=== PATIENT | female | born 1980 | race American Indian/Alaskan Native ===

== ENCOUNTER 2019-10-19 04:59 | Day surgery (SDC) | payer OTHER ==
[2019-10-19] MEDS ORDERED: Midazolam 1 MG/ML 2 ML SDV IV ONE ×3 (05:00→06:32)
[2019-10-19] MEDS ORDERED: fentaNYL 100 MCG/2 ML SDV IV ONE ×3 (05:00→06:31)
[2019-10-19] MEDS ORDERED: Dextrose 5%-0.45% NaCl 1,000 ML IV SCH (06:00)
[2019-10-19] MEDS ORDERED: Midazolam 1 MG/ML 2 ML SDV ONE (06:21)
[2019-10-19] MEDS ORDERED: fentaNYL 100 MCG/2 ML SDV ONE (06:21)
--- NOTE | 2019-10-19 08:22 | OR ---
DATE: 10/19/2019 PROCEDURE: Esophagogastroduodenoscopy and multiple pinch biopsies. INSTRUMENT USED: [id number]-HQ190 Olympus video panendoscope. PREMEDICATIONS: No oral or topical anesthesia used. Fentanyl 100 mcg intravenous, Versed 2 mg intravenous. The procedure was done under pulse oximetry, BP recording, and ekg monitor tech. INDICATION: The patient with longstanding heartburn as well as dyspepsia and abdominal bloating unexplained and not responsive to medical measures, on long- term acid suppressants. Esophagogastroduodenoscopy is performed for detection of any active erosive lesions, [place] esophagus and/or malignancy also under consideration, H pylori status to be determined, small bowel biopsies to be obtained for any evidence of celiac disease, endoscopic hemostasis therapy if needed. DESCRIPTION OF PROCEDURE: The scope was passed with ease. Adequate visualization of the esophagus was made from proximal to distal areas. No upper esophageal lesions identified. No distal esophageal stricture. No uphill or downhill esophageal varices. No Arin-Gregg tear. No evidence of erosive esophagitis by [place] criteria. No esophageal polyp or tumor mass identified. Z-line was seen at around 39 cm distal to the oral verge, configuration consistent with grade 1 by ZAP classification. No esophageal polyp or tumor mass identified. No proximal gastric varices noted. Gastric fundus examination by retroflexion showed no polypoid lesions. No gastric ulcer, malignant mass, or vascular ectasia identified. Duodenal bulb showed no ulcer. Visualized second part of the duodenum was unremarkable. Multiple pinch biopsies, 4 in number were taken from different areas of the second part of the duodenum and tissues were also obtained from the duodenal bulb at 9 and 12 o'clock positions and sent for any histopathologic evidence of celiac disease. Multiple pinch biopsies were also taken from the gastric antrum and proximal body and sent for PyloriTek test for H pylori and histopathology. No bleeding was noted from any of the visualized areas at the completion of examination. Photographs were taken of the duodenal bulb, gastric antrum, fundus, and distal esophagus. IMPRESSION: Normal study. The patient tolerated the procedure well. [facility] /[id number]
--- NOTE | 2019-10-19 09:56 | LETTER ---
10/19/2019 Ally BNUNY Chen [facility] [address] [place] [address] RE: BRYANTSANTHOSH MARIANNTHANH : 1980 Dear Mr. Chen: Ms. Santhosh Kyle had esophagogastroduodenoscopy done this morning and she tolerated the procedure well. I herewith send a copy of the endoscopy note and photographs for your review. Thank you. Sincerely, [facility] /[id number]
== END 2019-10-19 08:49 | disposition home or self-care (01) ==
LOC: DL.ENDO 04:59
PROVIDERS: ATTEND Internal Medicine Gastroenterology
DX: K29.50 Unspecified chronic gastritis without bleeding (principal); B96.81 Helicobacter pylori [H. pylori] as the cause of diseases classified elsewhere; E66.09 Other obesity due to excess calories; E55.9 Vitamin D deficiency, unspecified; E53.8 Deficiency of other specified B group vitamins; F17.210 Nicotine dependence, cigarettes, uncomplicated; K21.9 Gastro-esophageal reflux disease without esophagitis; Z86.010 Personal history of colon polyps; Z68.34 Body mass index [BMI] 34.0-34.9, adult
CPT/HCPCS: 43239; 81025; 87077; J2250; J3010; J7042

== ENCOUNTER 2019-10-20 06:21 | Day surgery (SDC) | payer OTHER ==
[2019-10-20] MEDS ORDERED: fentaNYL 100 MCG/2 ML SDV IV ONE ×5 (06:22→07:37)
[2019-10-20] MEDS ORDERED: Midazolam 1 MG/ML 2 ML SDV IV ONE ×7 (06:22→07:34)
[2019-10-20] MEDS ORDERED: Midazolam 1 MG/ML 2 ML SDV ONE (06:41)
[2019-10-20] MEDS ORDERED: fentaNYL 100 MCG/2 ML SDV ONE (06:41)
[2019-10-20] MEDS ORDERED: Dextrose 5%-0.45% NaCl 1,000 ML IV SCH (06:45)
--- NOTE | 2019-10-20 08:41 | OR ---
DATE: 10/20/2019 PROCEDURE: Total colonoscopy, terminal ileoscopy, and multiple pinch biopsies. INSTRUMENT USED: [id number]-H190DL Olympus video colonoscope. PREMEDICATIONS: Fentanyl 150 mcg intravenous, Versed 4 mg intravenous. The procedure was done under pulse oximetry, BP recording, and monitor worker. INDICATION: The patient with chronic diarrhea and rectal bleeding unexplained and not responsive to medical measures. Colonoscopic examination is done for detection of any polypoid lesions and removal, endoscopic hemostasis therapy if needed, biopsies to be obtained for any evidence of microscopic colitis. PROCEDURE IN DETAIL: Initial rectal exam was unremarkable. Rigid anoscopy showed small internal hemorrhoids without bleeding from them. The colonoscope was passed with ease. Diverticula were noted in the distal left colon along with some deformity. The scope was passed with ease up to and beyond the ileocecal junction to visualize the normal-appearing terminal ileum. Photographs were taken of terminal ileum and the cecum, multiple pinch biopsies were obtained from the terminal ileum and sent for histopathology. No bleeding was noted from any of the visualized areas at the commencement of the examination. No stricture. No vascular ectasia. No large isolated ulcerations seen. No evidence of diffuse inflammatory bowel disease in the form of friability, contact bleeding, or ulcerations. The bowel preparation was found to be adequate, [place] scale 2 in all the regions, total score 6. Probing the proximal sides of folds and flexures using adequate distention and clearing up the stool material, withdrawal of the scope was made. Multiple pinch biopsies were taken from the normal-appearing mucosa of the mid transverse colon, mid descending colon, and rectosigmoid, and sent for any histopathologic evidence of microscopic colitis. No bleeding was noted in any of the visualized areas at the completion of examination. IMPRESSION: 1. Internal hemorrhoids. 2. Diverticulosis. The patient tolerated the procedure well. [facility] /[id number]
--- NOTE | 2019-10-20 09:08 | LETTER ---
10/20/2019 Ally BUNNY Chen [facility] [address] [place] [address] RE: BRYANTSANTHOSH MARIANNTHANH : 1980 Dear Mr. Chen: Ms. Santhosh Kyle had colonoscopic examination done this morning and she tolerated the procedure well. I herewith send a copy of the endoscopy note and photographs for your review. Thank you. Sincerely, [facility] /[id number]
== END 2019-10-20 10:00 | disposition home or self-care (01) ==
LOC: DL.ENDO 06:21
PROVIDERS: ATTEND Internal Medicine Gastroenterology
DX: K52.9 Noninfective gastroenteritis and colitis, unspecified (principal); K57.31 Diverticulosis of large intestine without perforation or abscess with bleeding; K64.8 Other hemorrhoids; E66.09 Other obesity due to excess calories; E53.8 Deficiency of other specified B group vitamins; E55.9 Vitamin D deficiency, unspecified; Z88.5 Allergy status to narcotic agent; Z86.010 Personal history of colon polyps; Z98.890 Other specified postprocedural states; Z79.899 Other long term (current) drug therapy
CPT/HCPCS: 45380; J2250; J3010; J7042; G0121

== ENCOUNTER 2021-06-30 13:51 | Observation (INO) | payer OTHER ==
[2021-06-30] MEDS ORDERED: Sodium Chloride 0.9% 10 ML Syringe FLUSH PRN (14:03)
[2021-06-30] MEDS ORDERED: MVI, Adult with Vitamin K 10 ML, Thiamine 100 MG, Folic Acid 1 MG in Lactated Ringers 1... IV ONE ×4 (14:06)
[2021-06-30 15:12] LABS: ANION GAP 13.5 mEq/L (7-13); CHLORIDE,CL 105 mmol/L (98-107); SODIUM,NA 140 mmol/L (136-145)
[2021-06-30 15:41] LABS: ACETAMINOPHEN 0 ug/mL (10-30 (Therapeutic))
[2021-06-30 15:54] LABS: PTT,PARTIAL THROMBOPLSTIN TIME 20.8 SEC (22.0-34.0)
[2021-06-30 17:08] LABS: AMPHETAMINES,URINE NEGATIVE (NEGATIVE); BARBITURATES,URINE NEGATIVE (NEGATIVE); BENZODIAZEPINE,URINE NEGATIVE (NEGATIVE); MDMA (ECSTASY), URINE NEGATIVE (NEGATIVE); METHADONE,URINE NEGATIVE (NEGATIVE); METHAMPHETAMINES,URINE NEGATIVE (NEGATIVE); OPIATES,URINE NEGATIVE (NEGATIVE); OXYCODONE,URINE NEGATIVE (NEGATIVE); PHENCYCLIDINE,URINE NEGATIVE (NEGATIVE); TCA,URINE NEGATIVE (NEGATIVE)
[2021-06-30] MEDS ORDERED: Lidocaine 5% Oint 35.44 GM Tube TOP PRN (18:34)
[2021-06-30] MEDS: NS + KCl 20mEq/L 1,000 ML IV SCH (19:44)
[2021-06-30] MEDS: Ondansetron 4 MG/2 ML SDV IVPUSH PRN (19:57)
[2021-06-30] MEDS ORDERED: Flumazenil 0.1 MG/ML 5 ML MDV IVPUSH PRN (22:03)
[2021-06-30] MEDS: LORazepam 2 MG/ML SDV IVPUSH PRN (22:26)
[2021-06-30] MEDS: Famotidine 20 MG Tab PO SCH (22:26)
[2021-07-01] MEDS: LORazepam 2 MG/ML SDV IVPUSH PRN ×6 (01:57→16:48)
[2021-07-01 04:37] LABS: CORONAVIRUS COVID-19 NAA NEGATIVE (NEGATIVE); RESPIRATORY SYNCYTIAL VIR NAA NEGATIVE (NEGATIVE)
[2021-07-01] MEDS: Thiamine 100 MG in Sodium Chloride 0.9% 50 ML IV SCH ×2 (07:58→10:02)
[2021-07-01 08:26] LABS: ANION GAP 12.7 mEq/L (7-13); CHLORIDE,CL 106 mmol/L (98-107); SODIUM,NA 141 mmol/L (136-145)
[2021-07-01] MEDS ORDERED: Acetaminophen 325 MG Tab PO PRN (09:09)
[2021-07-01] MEDS: NS + KCl 20mEq/L 1,000 ML IV SCH (09:32)
[2021-07-01] MEDS: Famotidine 20 MG Tab PO SCH (09:52)
[2021-07-01] MEDS: Ondansetron 4 MG/2 ML SDV IVPUSH PRN (12:22)
== END 2021-07-01 18:00 | disposition left against medical advice (07) ==
LOC: DL.ED 13:51 → DL.MS 18:08 → DL.ED 18:21
PROVIDERS: ADMIT Internal Medicine; ATTEND Internal Medicine
DX: T42.6X2A Poisoning by other antiepileptic and sedative-hypnotic drugs, intentional self-harm, initial encounter (principal); F10.129 Alcohol abuse with intoxication, unspecified; G25.81 Restless legs syndrome; J45.909 Unspecified asthma, uncomplicated; K21.9 Gastro-esophageal reflux disease without esophagitis; F41.9 Anxiety disorder, unspecified; G89.29 Other chronic pain; M54.9 Dorsalgia, unspecified; Y90.0 Blood alcohol level of less than 20 mg/100 ml; Z88.8 Allergy status to other drugs, medicaments and biological substances; Z91.030 Bee allergy status; Z79.899 Other long term (current) drug therapy; Z20.822 Contact with and (suspected) exposure to COVID-19
CPT/HCPCS: 0241U; 36415; 80053; 80143; 80179; 80305; 80307; 81001; 81025; 83735; 84443; 85025; 85610; 85730; 93005; 96365; 96367; 96375; 96376; 99285; A9270; G0378; J2060; J2405; J3411; J3480; J7120; J3490

== ENCOUNTER 2021-07-10 07:33 | Inpatient (IN) | payer MEDICAID, OTHER ==
[2021-07-10] MEDS ORDERED: Prochlorperazine 5 MG Tab PO ONE (08:29)
[2021-07-10] MEDS ORDERED: MVI, Adult with Vitamin K 10 ML, Folic Acid 1 MG, Thiamine 100 MG in Lactated Ringers 1... IV ONE ×4 (08:29)
[2021-07-10 08:55] LABS: ANION GAP 17.4 mEq/L (7-13); CHLORIDE,CL 101 mmol/L (98-107); SODIUM,NA 138 mmol/L (136-145)
[2021-07-10 09:09] LABS: AMPHETAMINES,URINE NEGATIVE (NEGATIVE); BARBITURATES,URINE NEGATIVE (NEGATIVE); BENZODIAZEPINE,URINE NEGATIVE (NEGATIVE); MDMA (ECSTASY), URINE NEGATIVE (NEGATIVE); METHADONE,URINE NEGATIVE (NEGATIVE); METHAMPHETAMINES,URINE NEGATIVE (NEGATIVE); OPIATES,URINE NEGATIVE (NEGATIVE); OXYCODONE,URINE NEGATIVE (NEGATIVE); PHENCYCLIDINE,URINE NEGATIVE (NEGATIVE); TCA,URINE NEGATIVE (NEGATIVE)
[2021-07-10] MEDS ORDERED: Sodium Chloride 0.9% 1,000 ML IV SCH (10:30)
[2021-07-10] MEDS ORDERED: LORazepam 2 MG/ML SDV IVPUSH ONE (14:28)
[2021-07-10] MEDS ORDERED: Ondansetron 4 MG/2 ML SDV IVPUSH ONE (14:29)
[2021-07-10] MEDS ORDERED: QUEtiapine 25 MG Tab PO ONE ×2 (16:09→21:17)
[2021-07-10] MEDS ORDERED: Topiramate 25 MG Tab PO ONE (16:09)
[2021-07-10] MEDS ORDERED: Haloperidol Lactate 5 MG/ML SDV IM PRN (16:17)
[2021-07-10] MEDS ORDERED: Polyethylene Glycol 3350 Powder 17 GM Packet PO PRN (16:17)
[2021-07-10] MEDS ORDERED: Ketorolac 30 MG/ML SDV IVPUSH PRN (16:17)
[2021-07-10] MEDS ORDERED: Albuterol/Ipratropium 3.0-0.5 MG/3 ML Neb Soln NEB PRN (16:17)
[2021-07-10] MEDS ORDERED: Ondansetron 4 MG/2 ML SDV IVPUSH PRN (16:17)
[2021-07-10] MEDS ORDERED: Flumazenil 0.1 MG/ML 5 ML MDV IVPUSH PRN (16:29)
[2021-07-10] MEDS ORDERED: LORazepam 2 MG/ML SDV IVPUSH PRN (16:29)
[2021-07-10] MEDS: LORazepam 2 MG/ML SDV IVPUSH PRN ×2 (18:11→20:09)
[2021-07-10] MEDS: HYDROmorphone 0.5 MG/0.5 ML Syringe IVPUSH PRN ×2 (18:14→22:55)
[2021-07-10] MEDS: Sodium Chloride 0.9% 10 ML Syringe FLUSH PRN ×3 (18:17→22:01)
[2021-07-10] MEDS ORDERED: Ferrous Sulfate 325 MG Tab PO SCH (21:30)
[2021-07-10] MEDS: Topiramate 25 MG Tab PO SCH (21:41)
[2021-07-10] MEDS: diphenhydrAMINE 50 MG/ML SDV IVPUSH PRN (21:42)
[2021-07-10] MEDS: cloNIDine 0.1 MG Tab PO PRN (22:51)
[2021-07-11] MEDS: LORazepam 2 MG/ML SDV IVPUSH PRN ×3 (02:08→22:58)
[2021-07-11] MEDS: Sodium Chloride 0.9% 10 ML Syringe FLUSH PRN ×2 (02:08→07:42)
[2021-07-11] MEDS: HYDROmorphone 0.5 MG/0.5 ML Syringe IVPUSH PRN ×4 (02:12→21:20)
[2021-07-11] MEDS: cloNIDine 0.1 MG Tab PO PRN ×4 (03:59→20:14)
[2021-07-11] MEDS ORDERED: Pantoprazole 40 MG Tab.CR PO SCH (06:00)
[2021-07-11 08:03] LABS: ANION GAP 13.9 mEq/L (7-13); CHLORIDE,CL 99 mmol/L (98-107); SODIUM,NA 136 mmol/L (136-145)
[2021-07-11] MEDS: QUEtiapine 25 MG Tab PO SCH ×2 (08:33→21:07)
[2021-07-11] MEDS: Multivitamin Tab PO SCH (08:33)
[2021-07-11] MEDS: Topiramate 25 MG Tab PO SCH ×2 (08:33→21:07)
[2021-07-11] MEDS: Cholecalciferol (Vitamin D3) 25 MCG Tab PO SCH (08:34)
[2021-07-11] MEDS: Lidocaine 5% 700 MG Patch TOP SCH (08:35)
[2021-07-11] MEDS ORDERED: Thiamine 100 MG Tab PO SCH (09:00)
[2021-07-11] MEDS ORDERED: Folic Acid 1 MG Tab PO SCH (09:00)
[2021-07-11] MEDS: Ferrous Sulfate 325 MG Tab PO SCH (09:44)
[2021-07-11] MEDS ORDERED: Magnesium Sulfate/Water 4 GM in Premix Bag 1 BAG IV ONE (13:03)
[2021-07-11] MEDS ORDERED: Potassium Chloride 10 MEQ Tab.ER PO ONE (13:03)
[2021-07-11] MEDS ORDERED: Potassium Chloride 10 MEQ in Premix Bag 1 BAG IV SCH (14:00)
[2021-07-11] MEDS: Potassium Chloride 10 MEQ in Premix Bag 1 BAG IV SCH ×3 (17:47→22:16)
[2021-07-11] MEDS ORDERED: Gabapentin 300 MG Cap PO SCH (21:00)
[2021-07-11] MEDS: Famotidine 20 MG Tab PO SCH (21:07)
[2021-07-11] MEDS: Montelukast 10 MG Tab PO SCH (21:07)
[2021-07-11] MEDS: diphenhydrAMINE 50 MG/ML SDV IVPUSH PRN (21:08)
[2021-07-12] MEDS: Potassium Chloride 10 MEQ in Premix Bag 1 BAG IV SCH ×2 (00:32→02:24)
[2021-07-12] MEDS: HYDROmorphone 0.5 MG/0.5 ML Syringe IVPUSH PRN (00:33)
[2021-07-12] MEDS: LORazepam 2 MG/ML SDV IVPUSH PRN (00:37)
[2021-07-12] MEDS ORDERED: Haloperidol Lactate 5 MG/ML SDV IM ONE ×2 (01:20→14:46)
[2021-07-12] MEDS ORDERED: LORazepam 2 MG/ML SDV IVPUSH ONE (02:04)
[2021-07-12] MEDS ORDERED: Ketamine 500 mg/10 ML MDV IV ONE (05:01)
[2021-07-12] MEDS ORDERED: Midazolam 5 MG/ML 10 ML MDV IV STA (05:12)
[2021-07-12] MEDS ORDERED: Midazolam 50 MG in Sodium Chloride 0.9% 40 ML IV SCH (05:15)
[2021-07-12] MEDS ORDERED: Midazolam 5 MG/ML 10 ML MDV ONE (05:17)
[2021-07-12] MEDS ORDERED: MVI, Adult with Vitamin K 10 ML in Dextrose 5%-Lactated Ringers 1,000 ML IV SCH ×2 (05:45)
[2021-07-12] MEDS: Omeprazole 20 MG Cap.CR PO SCH (05:54)
[2021-07-12] MEDS ORDERED: MVI, Adult with Vitamin K 10 ML, Folic Acid 1 MG, Thiamine 100 MG in Lactated Ringers 1... IV ONE ×4 (05:59)
[2021-07-12 06:46] LABS: CHLORIDE,CL 104 mmol/L (98-107)
[2021-07-12 07:10] LABS: ANION GAP 12.7 mEq/L (7-13)
[2021-07-12 07:13] LABS: SODIUM,NA 135 mmol/L (136-145)
[2021-07-12] MEDS: Ferrous Sulfate 325 MG Tab PO SCH (07:46)
[2021-07-12] MEDS: Multivitamin Tab PO SCH (11:06)
[2021-07-12] MEDS: Lidocaine 5% 700 MG Patch TOP SCH ×2 (11:06→12:48)
[2021-07-12] MEDS: Cholecalciferol (Vitamin D3) 25 MCG Tab PO SCH (11:07)
[2021-07-12] MEDS ORDERED: Haloperidol Lactate 5 MG/ML SDV IM PRN (13:11)
[2021-07-12] MEDS: SODIUM CHLORIDE 0.9% IV SCH (16:05)
[2021-07-12] MEDS: LORAZEPAM IV SCH (16:05)
[2021-07-12] MEDS ORDERED: Bisacodyl 10 MG Supp RECTAL PRN (19:41)
[2021-07-12] MEDS: Famotidine 20 MG Tab PO SCH (22:40)
[2021-07-12] MEDS: Montelukast 10 MG Tab PO SCH (22:40)
[2021-07-13] MEDS: SODIUM CHLORIDE 0.9% IV SCH ×3 (02:07→20:25)
[2021-07-13] MEDS: LORAZEPAM IV SCH ×3 (02:07→20:25)
[2021-07-13] MEDS ORDERED: Midazolam 1 MG/ML 2 ML SDV IVPUSH ONE (02:26)
[2021-07-13] MEDS ORDERED: Haloperidol Lactate 5 MG/ML SDV IM ONE (03:36)
[2021-07-13] MEDS ORDERED: Haloperidol Lactate 5 MG/ML SDV IM PRN (05:53)
[2021-07-13] MEDS: Omeprazole 20 MG Cap.CR PO SCH (05:59)
[2021-07-13] MEDS ORDERED: chlordiazePOXIDE 25 MG Cap PO SCH ×4 (06:00→12:00)
[2021-07-13] MEDS ORDERED: QUEtiapine 25 MG Tab PO SCH ×2 (06:00→12:00)
[2021-07-13 06:23] LABS: ANION GAP 17.4 mEq/L (7-13); CHLORIDE,CL 103 mmol/L (98-107); SODIUM,NA 138 mmol/L (136-145)
[2021-07-13] MEDS ORDERED: Potassium Chloride 10 MEQ Tab.ER PO ONE (07:19)
[2021-07-13] MEDS ORDERED: Midazolam 5 MG/ML 10 ML MDV IV STA (07:26)
[2021-07-13] MEDS ORDERED: Midazolam 50 MG in Sodium Chloride 0.9% 40 ML IV SCH (07:30)
[2021-07-13] MEDS ORDERED: Haloperidol Lactate 5 MG/ML SDV IVPUSH SCH ×2 (08:00)
[2021-07-13] MEDS ORDERED: Midazolam 1 MG/ML 2 ML SDV IV STA (08:24)
[2021-07-13] MEDS: Multivitamin Tab PO SCH (08:57)
[2021-07-13] MEDS: Cholecalciferol (Vitamin D3) 25 MCG Tab PO SCH (08:57)
[2021-07-13] MEDS: Ferrous Sulfate 325 MG Tab PO SCH (08:57)
[2021-07-13] MEDS: Lidocaine 5% 700 MG Patch TOP SCH (08:58)
[2021-07-13] MEDS ORDERED: Midazolam 1 MG/ML 2 ML SDV IV ONE (09:15)
[2021-07-13] MEDS: QUEtiapine 25 MG Tab PO SCH ×3 (13:31→21:55)
[2021-07-13] MEDS: chlordiazePOXIDE 25 MG Cap PO SCH ×3 (13:32→21:53)
[2021-07-13] MEDS ORDERED: Non-Formulary Medication 1 Each IM PRN ×2 (19:00→19:50)
[2021-07-13] MEDS ORDERED: Water For Injection, Sterile 20 ML ONE (19:39)
[2021-07-13] MEDS: Water For Injection, Sterile 10 ML SDV INJECT PRN ×2 (19:45→23:35)
[2021-07-13] MEDS: Ziprasidone Mesylate 20 MG Vial IM PRN ×2 (19:45→23:33)
[2021-07-13] MEDS: Famotidine 20 MG Tab PO SCH (21:53)
[2021-07-13] MEDS: Montelukast 10 MG Tab PO SCH (21:54)
[2021-07-14] MEDS ORDERED: Midazolam 1 MG/ML 2 ML SDV IVPUSH ONE (01:52)
[2021-07-14] MEDS: Ziprasidone Mesylate 20 MG Vial IM PRN (04:38)
[2021-07-14] MEDS: Water For Injection, Sterile 10 ML SDV INJECT PRN (04:39)
[2021-07-14] MEDS: LORAZEPAM IV SCH ×2 (06:09→15:48)
[2021-07-14] MEDS: SODIUM CHLORIDE 0.9% IV SCH ×2 (06:09→15:48)
[2021-07-14] MEDS: Omeprazole 20 MG Cap.CR PO SCH (06:12)
[2021-07-14 06:44] LABS: ANION GAP 17.6 mEq/L (7-13); CHLORIDE,CL 109 mmol/L (98-107); SODIUM,NA 143 mmol/L (136-145)
[2021-07-14] MEDS ORDERED: MVI, Adult with Vitamin K 10 ML, Folic Acid 1 MG, Thiamine 100 MG in Lactated Ringers 1... IV ONE ×4 (09:59)
[2021-07-14] MEDS: Ferrous Sulfate 325 MG Tab PO SCH (10:09)
[2021-07-14] MEDS: QUEtiapine 25 MG Tab PO SCH ×2 (10:46→13:45)
[2021-07-14] MEDS: Lidocaine 5% 700 MG Patch TOP SCH (10:46)
[2021-07-14] MEDS: chlordiazePOXIDE 25 MG Cap PO SCH ×2 (10:46→13:47)
[2021-07-14] MEDS: Cholecalciferol (Vitamin D3) 25 MCG Tab PO SCH (10:47)
[2021-07-14] MEDS ORDERED: Water For Injection, Sterile 20 ML ONE (12:03)
[2021-07-14] MEDS ORDERED: Ziprasidone Mesylate 20 MG Vial IM PRN (12:24)
[2021-07-14] MEDS ORDERED: Metoprolol Tartrate 5 MG/5 ML SDV IVPUSH PRN (13:51)
[2021-07-14] MEDS: Midazolam 1 MG/ML 2 ML SDV IVPUSH PRN ×2 (13:57→15:46)
[2021-07-15] MEDS ORDERED: Ibuprofen 600 MG Tab PO PRN (22:18)
== END 2021-07-14 15:40 | DRG 897 ==
LOC: DL.ED 07:33 → DL.MS 15:14
PROVIDERS: ADMIT Internal Medicine; ATTEND Internal Medicine
DX: F10.121 Alcohol abuse with intoxication delirium (principal); F10.929 Alcohol use, unspecified with intoxication, unspecified; R45.1 Restlessness and agitation; R11.0 Nausea; M54.89 Other dorsalgia; J45.909 Unspecified asthma, uncomplicated; E87.6 Hypokalemia; E83.42 Hypomagnesemia; K21.9 Gastro-esophageal reflux disease without esophagitis; R73.9 Hyperglycemia, unspecified; F12.10 Cannabis abuse, uncomplicated; F32.9 Major depressive disorder, single episode, unspecified; E66.9 Obesity, unspecified; Z68.30 Body mass index [BMI] 30.0-30.9, adult; Z79.52 Long term (current) use of systemic steroids; G89.29 Other chronic pain; M54.9 Dorsalgia, unspecified; F41.9 Anxiety disorder, unspecified; E53.8 Deficiency of other specified B group vitamins; E55.9 Vitamin D deficiency, unspecified; Z88.5 Allergy status to narcotic agent; Z88.8 Allergy status to other drugs, medicaments and biological substances; Z91.030 Bee allergy status; Z79.899 Other long term (current) drug therapy; Z20.822 Contact with and (suspected) exposure to COVID-19
CPT/HCPCS: 36415; 80053; 80305; 80307 ×2; 81001; 83735; 85025; 93010; 96365; 96375; 99282; 99285 ×2; J2060; J2405; J3411; J7030; J7120; Q0164; 51702; 82550; 93005; A9270-GY; J1170; J1200; J1630; J1885; J2250; J3475; J3480; J3490; J7040; U0002

== ENCOUNTER 2021-08-09 09:16 | Emergency (ER) | payer MEDICAID ==
[2021-08-09] MEDS ORDERED: Iopamidol 612 MG/ML 100 ML Bottle IVPUSH ONE (09:31)
[2021-08-09 10:08] LABS: ANION GAP 18.6 mEq/L (7-13); CHLORIDE,CL 104 mmol/L (98-107); SODIUM,NA 142 mmol/L (136-145)
[2021-08-09] MEDS ORDERED: MVI, Adult with Vitamin K 10 ML, Thiamine 100 MG, Folic Acid 1 MG in Lactated Ringers 1... IV ONE ×4 (10:35)
[2021-08-09] MEDS ORDERED: Ketorolac 30 MG/ML SDV IVPUSH ONE (10:35)
[2021-08-09] MEDS ORDERED: Lidocaine 1% 30 ML SDV INJECT ONE (10:35)
[2021-08-09] MEDS ORDERED: Ondansetron 4 MG/2 ML SDV ONE (13:17)
[2021-08-09] MEDS ORDERED: Ondansetron 4 MG/2 ML SDV IVPUSH ONE (13:19)
[2021-08-09] MEDS ORDERED: Diphtheria,Pertussis(Acell),Tetanus Vaccine 0.5 ML Syringe IM ONE (13:28)
[2021-08-09] MEDS ORDERED: LORazepam 2 MG/ML SDV ONE (13:56)
[2021-08-09] MEDS ORDERED: LORazepam 2 MG/ML SDV IVPUSH ONE (14:01)
[2021-08-09] MEDS ORDERED: Acetaminophen 500 MG Tab PO ONE (14:06)
== END 2021-08-09 14:20 | disposition home or self-care (01) ==
LOC: DL.ED 09:16
DX: S01.01XA Laceration without foreign body of scalp, initial encounter (principal); S01.81XA Laceration without foreign body of other part of head, initial encounter; F10.129 Alcohol abuse with intoxication, unspecified; K21.9 Gastro-esophageal reflux disease without esophagitis; J45.909 Unspecified asthma, uncomplicated; Z88.5 Allergy status to narcotic agent; Z91.030 Bee allergy status; Z79.899 Other long term (current) drug therapy; Z23 Encounter for immunization; Y04.0XXA Assault by unarmed brawl or fight, initial encounter
CPT/HCPCS: 12001; 12002; 12011; 36415; 70450; 70486; 71260; 72125; 74177; 80053; 80307; 83735; 85025; 90471; 90715; 96365; 96375; 99284-25; 99285; A9270-GY; J1885; J2060; J2405; J3411; J3490; J7120; Q9967

== ENCOUNTER 2021-12-01 17:14 | Emergency (ER) | payer MEDICAID | END 2021-12-01 17:40 | disposition left against medical advice (07) | LOC: DL.ED 17:14 | DX: Z53.21 Procedure and treatment not carried out due to patient leaving prior to being seen by health care provider (principal) ==

== ENCOUNTER 2022-10-05 13:18 | Emergency (ER) | payer MEDICAID ==
[2022-10-05] MEDS ORDERED: Bacitracin Oint 1 GM U/D Packet TOP ONE (14:29)
[2022-10-05] MEDS ORDERED: Lidocaine 1% 5 ML VIAL INJECT ONE (14:29)
== END 2022-10-05 15:35 | disposition home or self-care (01) ==
LOC: DL.ED 13:18
DX: S61.011A Laceration without foreign body of right thumb without damage to nail, initial encounter (principal); J45.909 Unspecified asthma, uncomplicated; K21.00 Gastro-esophageal reflux disease with esophagitis, without bleeding; Z88.5 Allergy status to narcotic agent; Z88.6 Allergy status to analgesic agent; Z91.030 Bee allergy status; Z79.899 Other long term (current) drug therapy; Z98.890 Other specified postprocedural states; W25.XXXA Contact with sharp glass, initial encounter; Y93.G1 Activity, food preparation and clean up
CPT/HCPCS: 12001; 73140-F5; 99282; 99283; A9270-GY; J3490

== ENCOUNTER 2023-01-05 15:18 | Emergency (ER) | payer MEDICAID ==
[2023-01-05] MEDS ORDERED: Lidocaine 1% 5 ML VIAL INJECT ONE (15:50)
[2023-01-05] MEDS ORDERED: Cephalexin 500 MG Cap PO ONE (16:12)
[2023-01-05] MEDS ORDERED: Acetaminophen/HYDROcodone 325-5 MG Tab PO ONE (16:12)
[2023-01-05] MEDS ORDERED: Take Home: Acetaminophen/HYDROcodone 325-5 MG, 5 Tab Pack PO ONE (16:12)
[2023-01-05] MEDS ORDERED: Take Home: Cephalexin 500 MG Cap, 6 Cap Pack PO ONE (16:13)
== END 2023-01-05 16:32 | disposition home or self-care (01) ==
LOC: DL.ED 15:18
DX: S92.514B Nondisplaced fracture of proximal phalanx of right lesser toe(s), initial encounter for open fracture (principal); S91.114A Laceration without foreign body of right lesser toe(s) without damage to nail, initial encounter; J45.909 Unspecified asthma, uncomplicated; K21.9 Gastro-esophageal reflux disease without esophagitis; Z79.899 Other long term (current) drug therapy; Z88.5 Allergy status to narcotic agent; Z88.8 Allergy status to other drugs, medicaments and biological substances; Z91.030 Bee allergy status; W01.0XXA Fall on same level from slipping, tripping and stumbling without subsequent striking against object, initial encounter
CPT/HCPCS: 12001; 73630; 99282; 99283; A9270; J3490

== ENCOUNTER 2023-05-15 05:07 | Emergency (ER) | payer MEDICAID ==
[2023-05-15 05:43] LABS: BASOPHILS PERCENT AUTO 0.5 % (0.0-1.0); EOSINOPHILS PERCENT AUTO 4.6 % (1.0-3.0); HEMOGLOBIN 11.9 g/dL (12.0-16.0); LYMPHOCYTES PERCENT AUTO 35.4 % (20.5-50.1); MEAN CORPUSCULAR HEMOGLOBIN 29.1 pg (27.0-34.0); MEAN CORPUSCULAR HGB CONC 33.1 g/dL (33.0-35.0); MONOCYTES PERCENT AUTO 8.2 % (2-8); NEUTROPHILS PERCENT AUTO 51.3 % (42.2-75.2); PLATELET COUNT,PLT 197 10^3/uL (150-450); RED BLOOD CELL COUNT 4.09 10^6/uL (4.2-5.4); WHITE BLOOD CELL COUNT,WBC 6.3 10^3/uL (5.0-10.0)
[2023-05-15 05:59] LABS: ALANINE AMINOTRANSFERASE,ALT 21 U/L (14-59); ALBUMIN 3.2 g/dL (3.4-5.0); ALKALINE PHOSPHATASE 90 U/L (46-116); ANION GAP 17.4 mEq/L (7-13); ASPARTATE AMNIOTRANSFERASE,AST 31 U/L (15-37); BILIRUBIN TOTAL 0.1 mg/dL (0.2-1.0); BLOOD UREA NITROGEN,BUN 14 mg/dL (7-18); BUN/CREATININE RATIO 11.9 (No establ ref range); CALCIUM 8.7 mg/dL (8.5-10.1); CARBON DIOXIDE,CO2 24 mmol/L (21-32); CHLORIDE,CL 107 mmol/L (98-107); CREATININE 1.18 mg/dL (0.55-1.02); ETHANOL BLOOD MEDICAL 252 mg/dL (0); GLUCOSE RANDOM 130 mg/dL (70-99); MAGNESIUM 1.9 mg/dL (1.8-2.4); POTASSIUM,K 3.4 mmol/L (3.5-5.1); SODIUM,NA 145 mmol/L (136-145)
[2023-05-15 06:00] LABS: A/G RATIO 0.84; ESTIMATED GFR 58 mL/min (>=60)
[2023-05-15] MEDS ORDERED: LORazepam 1 MG Tab PO ONE (06:00)
[2023-05-15] MEDS ORDERED: Acetaminophen 500 MG Tab PO ONE (06:00)
== END 2023-05-15 08:43 | disposition home or self-care (01) ==
LOC: DL.ED 05:07
DX: F10.929 Alcohol use, unspecified with intoxication, unspecified (principal); K21.9 Gastro-esophageal reflux disease without esophagitis; J45.909 Unspecified asthma, uncomplicated; Z91.030 Bee allergy status; Z88.8 Allergy status to other drugs, medicaments and biological substances; Z79.899 Other long term (current) drug therapy
CPT/HCPCS: 36415; 80053; 80307; 83735; 85025; 99283; 99285; A9270-GY

== ENCOUNTER 2025-02-08 05:22 | Day surgery (SDC) | payer MEDICAID ==
[2025-02-08] MEDS ORDERED: Lactated Ringers 1,000 ML IV ONE (05:23)
[2025-02-08] MEDS ORDERED: Propofol 200 MG/20 ML SDV IV ONE (05:23)
[2025-02-08] MEDS ORDERED: Propofol 200 MG/20 ML SDV ONE ×2 (06:11→06:39)
[2025-02-08] MEDS: Lactated Ringers 1,000 ML IV SCH (06:24)
== END 2025-02-08 08:27 | disposition home or self-care (01) ==
LOC: DL.ENDO 05:22
PROVIDERS: ATTEND Internal Medicine Gastroenterology
DX: K31.89 Other diseases of stomach and duodenum (principal); K44.9 Diaphragmatic hernia without obstruction or gangrene; K25.9 Gastric ulcer, unspecified as acute or chronic, without hemorrhage or perforation; D64.9 Anemia, unspecified; E11.9 Type 2 diabetes mellitus without complications; E66.9 Obesity, unspecified
CPT/HCPCS: 43239; J2704; J7120; S5010